=== PATIENT | female | born 1985 | race Caucasian/White ===

== ENCOUNTER 2023-04-27 13:03 | Emergency (ER) | payer OTHER, SELFPAY ==
--- NOTE | ~2023-04-27 | XR_ITS ---
EXAMINATION: XR finger 5th RT min 2V INDICATION: Right fifth finger pain, initial encounter TECHNIQUE: Four views of the right fifth finger are obtained on five radiographs. COMPARISON: None available FINDINGS: There is an acute oblique fracture at the palmar base of the fifth middle phalanx which ext ends to the proximal interphalangeal joint. The fracture fragment is rotated approximately 90 degrees relative to the origin site. The fracture involves less than 50% of the articular surface. Soft tiss ue swelling surrounds the fracture. No additional fracture is identified. IMPRESSION: 1. Volar plate avulsion of the fifth middle phalanx with rotation of the fracture fragment relative t o the donor site. Orthopedic evaluation is recommended. Reviewed, dictated and finalized at location B. [employer] IMPRESSION: 1. Volar plate avulsion of the fifth middle phalanx with rotation of the fractu re fragment relative to the donor site. Orthopedic evaluation is recommended.
[2023-04-27 13:15] VITALS: BP 107/79; PULSE 75; RESP 20; TEMP 36.8; O2SAT 100
--- NOTE | 2023-04-27 13:21 | ED.UPPEXIN ---
HPI - Extremity Injury (Upper) General Chief Complaint: Extremity Injury, Upper Stated Complaint: Injured Finger Time Seen by Provider: 04/27/23 13:22 Source: patient, RN notes reviewed and old records reviewed Mode of arrival: ambulatory Limitations: no limitations History of Present Illness HPI narrative: 38-year-old female presents to the [facility] with complaints of pain, swelling, bruising to the right 5th finger Decreased range of motion Injury occurred approximately 5 weeks ago, patient states that she was climbing over a baby gate when she started to fall, finger did not, off the baby gate with her. Sensation intact, capillary refill under 2 seconds Has been taken ibuprofen complaint: injury to: right and finger (5th) Onset (ago): week(s) (5) Treatments prior to arrival: NSAIDS Related Data Home Medications Medication Instructions Recorded Confirmed ergocalciferol (vitamin D2) 1,250 50,000 unit PO WEEKLY 04/27/23 04/27/23 mcg (50,000 unit) capsule Allergies Allergy/AdvReac Type Severity Reaction Status Date / Time No Known Allergies Allergy Verified 04/27/23 13:20 Review of Systems Review of Systems: All systems reviewed & are unremarkable except as noted in HPI and below Constitutional: Constitutional: Reports no additional constitutional complaints Eyes: Eyes: Reports no additional eye complaints ENT: Reports system reviewed and no additional complaints, except as documented Cardiovascular: Cardiovascular: Reports no additional cardiovascular complaints, Denies chest pain and Denies dyspnea Respiratory: Respiratory: Reports no additional respiratory complaints, Denies chest congestion, Denies cough and Denies dyspnea Gastrointestinal: Gastrointestinal: Reports no additional gastrointestinal complaints, Denies abdominal pain, Denies nausea and Denies vomiting Musculoskeletal: Musculoskeletal: Reports as per HPI, Reports arthralgias, Reports joint swelling, Reports limited range of motion and Denies numbness Integumentary/Breasts: Skin/Breast: Reports system reviewed and no additional complaints, except as docu Neurologic: Reports system reviewed and no additional complaints, except as documented Psychiatric: Psychiatric: Reports no additional psychiatric complaints Allergic/Immunologic: Allergic/Immunologic: Reports no additional allergic/immunologic complaints PMFSH Comments At the time of my signature, I reviewed and agree with the nursing past medical, surgical, social, and family history. There is no relevant family history pertinent to the patient complaint. Exam Const: General: cooperative, healthy appearing, comfortable, no acute distress, well developed, alert and well nourished Nutritional Appearance: well nourished Orientation/consciousness: patient oriented x3 Limitations: no limitations HENMT: Head: normal to inspection Ears: hearing grossly normal bilaterally and external ears normal Face/Nose/Sinus: Normal external nose present, Normal nares present, Normal nasal mucous membranes and turbinates present, normal facial exam and face symmetric Face and sinus: normal facial exam and face symmetric Eyes: General: appearance normal, both eyes and all related structures Alignment and Position: alignment normal Periorbital: periorbital findings normal Pupils: Equal, round and reactive pupils present EOM: EOMs intact bilaterally Neck: Neck: normal visual inspection, full ROM, no lymphadenopathy and no meningeal signs Chest: Chest palpation & inspection: normal inspection of the chest Resp: Effort & Inspection: normal respiratory effort and able to speak in complete sentences Cardio: Rate: regular rate Rhythm: regular rhythm Back/Spine/Pelvis: Cervical Spine: cervical ROM normal Skin: General skin exam: normal color and no rashes or lesions noted Lesions: no lesions Rashes: no rashes Wounds: no wounds Neuro: General: patient oriented x3, gait normal, tone normal, moves
== END 2023-04-27 14:38 | disposition home or self-care (01) ==
PROVIDERS: Emergency Provider Nurse Practitioner; PCP Family Medicine
DX: S62.626A Displaced fracture of middle phalanx of right little finger, initial encounter for closed fracture (principal); W18.09XA Striking against other object with subsequent fall, initial encounter
CPT/HCPCS: 29130; 73140; 99214; G0463